=== PATIENT | female | born 1975 | race African-American/Black ===

== ENCOUNTER 2019-01-11 23:03 | Emergency (ER) | payer MEDICAID ==
[~2019-01-11] VITALS: Ht 144.8 cm; Wt 74.0 kg
[2019-01-11 23:26] LABS: CLARITY URINE CLOUDY (CLEAR); COLOR URINE YELLOW (YELLOW); KETONES URINE TRACE (NEGATIVE); LEUKOCYTE ESTERASE URINE 1+ (NEGATIVE); NITRITE URINE NEGATIVE (NEGATIVE); OCCULT BLOOD URINE 3+ (NEGATIVE); PH URINE 5.5 (4.5-8.0); PROTEIN URINE 1+ (NEGATIVE); SPECIFIC GRAVITY URINE 1.023 (1.005-1.030)
[2019-01-11 23:35] LABS: *BARBITURATES SCREEN URINE NEGATIVE (NEGATIVE); *BENZODIAZEPINES SCREEN URINE NEGATIVE (NEGATIVE); *COCAINE SCREEN URINE NEGATIVE (NEGATIVE); METHADONE URINE SCREEN NEGATIVE (NEGATIVE); OPIATES URINE SCREEN NEGATIVE (NEGATIVE)
[2019-01-11 23:37] LABS: PHENCYCLIDINE URINE SCREEN NEGATIVE (NEGATIVE)
[2019-01-11 23:40] LABS: *AMPHETAMINES SCREEN URINE PRESUMTIVE POSITIVE (NEGATIVE); CANNABINOID URINE SCREEN PRESUMTIVE POSITIVE (NEGATIVE)
[2019-01-12] MEDS ORDERED: LORAZEPAM 2MG/ML CPJ IM ONE (02:45)
[2019-01-12 03:17] LABS: CHLORIDE 109 mEq/L (98-107)
[2019-01-12 03:23] LABS: ETHANOL BLOOD < 10 mg/dL
[2019-01-12 03:30] LABS: BASOPHILS % 0.7 % (0.0-2.0); EOSINOPHILS % 0.6 % (0.0-5.0); HEMATOCRIT. 37.3 % (36.0-48.0); HEMOGLOBIN. 12.3 g/dL (12.0-16.0); LYMPHOCYTES % 30.2 % (20.0-50.0); MEAN CORPUSCULAR HEMOGLOBIN 26.4 pg (28.0-32.0); MEAN CORPUSCULAR VOLUME 80.5 fL (81.0-99.0); MEAN PLATELET VOLUME 8.5 fl (7.4-10.4); MONOCYTES % 7.6 % (2.0-8.0); NEUTROPHILS % 60.9 % (40.0-76.0); PLATELET 357 x1000/uL (130-400); RED BLOOD CELL COUNT 4.64 mill/uL (4.2-5.4); RED CELL DISTRIBUTION WIDTH 14.6 % (11.6-14.6)
[2019-01-12] MEDS ORDERED: ALBUTEROL (0.083%) 2.5MG/3ML NEB HHN STA (03:40)
[2019-01-12] MEDS ORDERED: IPRATROPIUM BROMIDE (0.02%) 0.5MG/2.5ML NEB HHN STA (03:40)
[2019-01-12] MEDS ORDERED: CEPHALEXIN 250MG CAPSULE PO ONE (03:45)
[2019-01-12] MEDS ORDERED: IBUPROFEN 800MG TABLET PO ONE (05:45)
[2019-01-12] MEDS ORDERED: IPRATROPIUM BROMIDE (0.02%) 0.5MG/2.5ML NEB HHN NR (08:30)
[2019-01-12] MEDS ORDERED: ALBUTEROL (0.083%) 2.5MG/3ML NEB HHN NR (08:30)
[2019-01-12] MEDS ORDERED: RISPERIDONE 1MG TABLET PO ONE (12:30)
[2019-01-12] MEDS: RISPERIDONE 1MG TABLET PO SCH (19:48)
[2019-01-13] MEDS: RISPERIDONE 1MG TABLET PO SCH (09:00)
[2019-01-13] MEDS ORDERED: IBUPROFEN 800MG TABLET PO ONE (09:00)
[2019-01-13 09:43] VITALS: BP 108/55
== END 2019-01-13 09:40 | disposition home or self-care (01) ==
LOC: ER 23:03
DX: R45.850 Homicidal ideations (principal); R45.1 Restlessness and agitation; F12.10 Cannabis abuse, uncomplicated; F15.10 Other stimulant abuse, uncomplicated; Z59.0 Homelessness
CPT/HCPCS: 80305; 81003; 81025; 99284; J7611